=== PATIENT | male | born 2000 | race Caucasian/White ===

== ENCOUNTER 2023-09-01 12:50 | Outpatient (OUT) | payer MEDICAID, SELFPAY ==
[2023-09-01 13:26] LABS: Basophils Percent Auto 0.5 % (0.2-2.0); Eosinophils Absolute Auto 0.1 10^3/uL (0.0-0.7); Eosinophils Percent Auto 1.9 % (0.9-7.0); Hematocrit 43.9 % (42.0-54.0); Hemoglobin 15.3 g/dL (14.0-18.0); Immature Granulocytes Abs Auto 0.02 10^3/uL (0.00-0.03); Immature Granulocytes Pct Auto 0.3 % (0.0-0.5); Lymphocytes Absolute Auto 1.5 10^3/uL (1.2-3.8); Lymphocytes Percent Auto 25.1 % (20.5-60.0); Mean Corpuscular HGB Conc 34.9 g/dL (29.9-35.2); Mean Corpuscular Hemoglobin 31.9 pg (25.9-34.0); Mean Corpuscular Volume 91.6 fL (80.0-94.0); Mean Platelet Volume 9.1 fL (9.5-13.5); Monocytes Absolute Auto 0.4 10^3/uL (0.3-0.8); Monocytes Percent Auto 7.4 % (1.7-12.0); Neutrophils Absolute Auto 3.8 10^3/uL (1.4-6.5); Neutrophils Percent Auto 64.8 % (43.0-75.0); Platelet Count 240 10^3/uL (150-450); Red Blood Count 4.79 10^6/uL (4.70-6.10); Red Cell Distribution Width 11.8 % (11.0-15.0); White Blood Count 5.8 10^3/uL (4.0-11.0)
[2023-09-01 14:25] LABS: Alanine Aminotransferase 38 U/L (16-63); Albumin Globulin Ratio 1.1; Alkaline Phosphatase 52 U/L (46-116); Anion Gap 11.2; Aspartate Amino Transferase 16 U/L (15-37); BUN Creatinine Ratio 15.1; Calcium 8.9 mg/dL (8.5-10.1); Chloride 103 mmol/L (98-107); Chol HDL Ratio 2.7; Cholesterol 188 mg/dL (<=200); Estimated GFR (African America >60 (>=60); Estimated GFR (Non-African Ame >60 (>=60); Globulin 3.7 g/dL; Glucose 93 mg/dL (74-106); HDL Cholesterol 69 mg/dL (40-60); Potassium 4.2 mmol/L (3.5-5.1); Sodium 139 mmol/L (136-145); Total Protein 7.7 g/dL (6.4-8.2); Triglycerides 76 mg/dL (<=150); VLDL CHOLESTEROL 15.2 mg/dL
[2023-09-01 14:55] LABS: Bilirubin Urine NEGATIVE (NEGATIVE); Blood Urine NEGATIVE (NEGATIVE); Clarity Urine CLEAR (CLEAR); Color Urine LT. YELLOW (YELLOW); Glucose Urine UA NEGATIVE (NEGATIVE); Ketones Urine NEGATIVE (NEGATIVE); Leukocyte Esterase Urine NEGATIVE (NEGATIVE); Nitrite Urine NEGATIVE (NEGATIVE); Protein Urine NEGATIVE (NEG/TRACE); Urobilinogen Urine 0.2 EU/dL (0.2-1.0); pH Urine 7.5 (5.0-9.0)
[2023-09-01 14:56] LABS: Urine Microscopic Indicated NO
[2023-09-01 15:22] LABS: Erythrocyte Sedimentation Rate 4 mm/hr (<=15)
[2023-09-05 06:10] LABS: Free Testosterone(Direct) 7.5 pg/mL (9.3-26.5); Testosterone 363 ng/dL (264-916)
== END 2023-09-01 12:51 | disposition home or self-care (01) ==
PROVIDERS: PCP Nurse Practitioner; Visit Provider Nurse Practitioner
DX: R53.83 Other fatigue (principal); Z68.34 Body mass index [BMI] 34.0-34.9, adult; E66.9 Obesity, unspecified; L65.9 Nonscarring hair loss, unspecified
CPT/HCPCS: 36415; 80053; 80061; 81003; 82306; 82607; 82728; 82746; 83540; 84402; 84403; 84443; 85025; 85652

== ENCOUNTER 2023-09-07 19:22 | Emergency (ER) | payer MEDICAID, SELFPAY ==
[2023-09-07 19:32] VITALS: BP 135/80; PULSE 56; RESP 16; TEMP 36.4; O2SAT 100; BMI 34.3
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
--- NOTE | 2023-09-07 19:59 | ED_ITS ---
HPI - General Adult General Chief complaint: Headache Stated complaint: Migraine Time Seen by Provider: 09/07/23 19:57 Mode of arrival: walk-in History of Present Illness HPI narrative: presents complaining of headache that started about 2 hours ago. Pain behind his right eye. Similar to past headaches. tonight has vomited several times and still feels nauseated. No fever . No photophobia. No ext. paresthesia . States last time he had a headache like this was several years ago. Recurrent headaches on and off since he was a kid Onset (ago): hour(s) Related Data Home Medications Medication Instructions Recorded Confirmed famotidine 20 mg tablet mg 09/07/23 Allergies Allergy/AdvReac Type Severity Reaction Status Date / Time amoxicillin Allergy Verified 09/07/23 19:37 Penicillins Allergy Verified 09/07/23 19:37 Review of Systems ROS Status of ROS 10 or more systems reviewed and unremark able except as noted in history and below PFSH PFS Social History Smoking status: Never smoker Exam Constitutional Vital Signs, click to edit/add: Last Vital Signs Temp 97.5 F L 09/07/23 19:32 Pulse 56 L 09/07/23 19:32 Resp 16 09/07/23 19:32 BP 135/80 09/07/23 19:32 Pulse Ox 100 09/07/23 19:32 O2 Del Method Room Air 09/07/23 19:32 Common normals: no apparent distress, average body habitus, oriented x3, no limitations, healthy appearing, alert and well nourished [facility] Common normals: normocephalic Eye Common normals: PERRL, EOMs intact bilaterally and conjunctivae normal Respiratory Common normals: normal respiratory effort, no retractions and no use of accessory muscles Cardio Common normals: regular rate, regular rhythm, S1 normal heart sound and S2 normal heart sound GI Common normals: Normal to inspection, nondistended, normoactive bowel sounds present, soft to palpation and non-tender Extremity Common normals: normal to inspection Neuro Common normals: oriented x3, CN's II-XII intact bilaterally, moves all extremities, no focal motor deficits and no sensory deficits noted Psych Appearance: grossly normal Course Vital Signs Vital signs: Vital Signs Temperature 97.5 F L 09/07/23 19:32 Pulse Rate 56 L 09/07/23 19:32 Respiratory Rate 16 09/07/23 19:32 Blood Pressure 135/80 09/07/23 19:32 Pulse Oximetry 100 09/07/23 19:32 Oxygen Delivery Method Room Air 09/07/23 19:32 Temperature 97.5 F L 09/07/23 19:32 Pulse Rate 56 L 09/07/23 19:32 Respiratory Rate 16 09/07/23 19:32 Blood Pressure 135/80 09/07/23 19:32 Pulse Oximetry 100 09/07/23 19:32 Oxygen Delivery Method Room Air 09/07/23 19:32 Medical Decision Making MDM Narrative Medical decision making narrative: patient presents with a headache. similar to past headaches. Treated succ essfully in the department. He is now resting and pain free. Discharged home and advised to follow up with the family doctor Lab Data Labs: Lab Results 09/07/23 Range/Units 20:16 WBC 9.4 (4.0-11.0) 10^3/uL RBC 4.75 (4.70-6.10) 10^6/uL Hgb 15.2 (14.0-18.0) g/dL Hct 43.0 (42.0-54.0) % MCV 90.5 (80.0-94.0) fL MCH 32.0 (25.9-34.0) pg MCHC 35.3 H (29.9-35.2) g/dL RDW 11.6 (11.0-15.0) % Plt Count 250 (150-450) 10^3/uL MPV 9.2 L (9.5-13.5) fL Neut % (Auto) 78.2 H (43.0-75.0) % Lymph % (Auto) 15.6 L (20.5-60.0) % [place] % (Auto) 5.0 (1.7-12.0) % Eos % (Auto) 0.7 L (0.9-7.0) % Baso % (Auto) 0.3 (0.2-2.0) % Neut # (Auto) 7.4 H (1.4-6.5) 10^3/uL Lymph # (Auto) 1.5 (1.2-3.8) 10^3/uL [place] # (Auto) 0.5 (0.3-0.8) 10^3/uL Eos # (Auto) 0.1 (0.0-0.7) 10^3/uL Baso # (Auto) 0.0 (0.0-0.1) 10^3/uL Abs Immat Gran (auto) 0.02 (0.00-0.03) 10^3/uL Imm/Tot Granulo (auto) 0.2 (0.0-0.5) % Sodium 138 (136-145) mmol/L Potassium 4.1 (3.5-5.1) mmol/L Chloride 103 (98-107) mmol/L Carbon Dioxide 30.5 (21.0-32.0) mmol/L Anion Gap 8.6 BUN 15.0 (7.0-18.0) mg/dL Creatinine 0.98 (0.70-1.30) mg/dL Est GFR ( Amer) >60 (>=60) Est GFR (Non-Af Amer) >60 (>=60) BUN/Creatinine Ratio 15.3 Glucose 93 (74-106) mg/dL Calcium 8.8 (8.5-10.1) mg/dL Discharge Plan Discharge Chief Complaint: Headache Clinical Impression: Migraine Patient Disposition: Home, Self-Care Prescriptions / Home Meds: No Action famotidine 20 mg tablet Instructions: Migraine Headache (ED) Additional Instructions: follow up with your family doctor for recheck Referrals: Adeline Santana NP [Primary Care Provider] - 1 week Stand Alone Forms: Portal Instructions
[2023-09-07] MEDS: KETOROLAC TROMETHAMINE 30 MG/ML VIAL IM (20:17)
[2023-09-07] MEDS: METOCLOPRAMIDE HCL 10 MG/2 ML VIAL IVP (20:18)
[2023-09-07] MEDS: DIPHENHYDRAMINE HCL 50 MG/ML (1ML) VIAL IV (20:19)
[2023-09-07 20:22] LABS: Basophils Percent Auto 0.3 % (0.2-2.0); Eosinophils Absolute Auto 0.1 10^3/uL (0.0-0.7); Eosinophils Percent Auto 0.7 % (0.9-7.0); Hemoglobin 15.2 g/dL (14.0-18.0); Immature Granulocytes Abs Auto 0.02 10^3/uL (0.00-0.03); Immature Granulocytes Pct Auto 0.2 % (0.0-0.5); Lymphocytes Absolute Auto 1.5 10^3/uL (1.2-3.8); Lymphocytes Percent Auto 15.6 % (20.5-60.0); Mean Corpuscular HGB Conc 35.3 g/dL (29.9-35.2); Mean Corpuscular Volume 90.5 fL (80.0-94.0); Mean Platelet Volume 9.2 fL (9.5-13.5); Monocytes Absolute Auto 0.5 10^3/uL (0.3-0.8); Neutrophils Absolute Auto 7.4 10^3/uL (1.4-6.5); Neutrophils Percent Auto 78.2 % (43.0-75.0); Platelet Count 250 10^3/uL (150-450); Red Blood Count 4.75 10^6/uL (4.70-6.10); Red Cell Distribution Width 11.6 % (11.0-15.0); White Blood Count 9.4 10^3/uL (4.0-11.0)
[2023-09-07 20:31] LABS: Anion Gap 8.6; BUN Creatinine Ratio 15.3; Calcium 8.8 mg/dL (8.5-10.1); Carbon Dioxide 30.5 mmol/L (21.0-32.0); Chloride 103 mmol/L (98-107); Estimated GFR (African America >60 (>=60); Estimated GFR (Non-African Ame >60 (>=60); Glucose 93 mg/dL (74-106); Potassium 4.1 mmol/L (3.5-5.1); Sodium 138 mmol/L (136-145)
--- NOTE | 2023-09-07 22:09 | ED_ITS ---
HPI - General Adult General Chief complaint: Headache Stated complaint: Migraine Time Seen by Provider: 09/07/23 19:57 Mode of arrival: walk-in Related Data Home Medications Medication Instructions Recorded Confirmed famotidine 20 mg tablet mg 09/07/23 Allergies Allergy/AdvReac Type Severity Reaction Status Date / Time amoxicillin Allergy Verified 09/07/23 19:37 Penicillins Allergy Verified 09/07/23 19:37 PFSH PFSH Social History Smoking status: Never smoker Exam Constitutional Vital Signs, click to edit/add: Last Vital Signs Temp 97.5 F L 09/07/23 19:32 Pulse 56 L 09/07/23 19:32 Resp 16 09/07/23 19:32 BP 135/80 09/07/23 19:32 Pulse Ox 100 09/07/23 19:32 O2 Del Method Room Air 09/07/23 19:32 Course Vital Signs Vital signs: Vital Signs Temperature 97.5 F L 09/07/23 19:32 Pulse Rate 56 L 09/07/23 19:32 Respiratory Rate 16 09/07/23 19:32 Blood Pressure 135/80 09/07/23 19:32 Pulse Oximetry 100 09/07/23 19:32 Oxygen Delivery Method Room Air 09/07/23 19:32 Temperature 97.5 F L 09/07/23 19:32 Pulse Rate 56 L 09/07/23 19:32 Respiratory Rate 16 09/07/23 19:32 Blood Pressure 135/80 09/07/23 19:32 Pulse Oximetry 100 09/07/23 19:32 Oxygen Delivery Method Room Air 09/07/23 19:32 Medical Decision Making Lab Data Labs: Lab Results 09/07/23 Range/Units 20:16 WBC 9.4 (4.0-11.0) 10^3/uL RBC 4.75 (4.70-6.10) 10^6/uL Hgb 15.2 (14.0-18.0) g/dL Hct 43.0 (42.0-54.0) % MCV 90.5 (80.0-94.0) fL MCH 32.0 (25.9-34.0) pg MCHC 35.3 H (29.9-35.2) g/dL RDW 11.6 (11.0-15.0) % Plt Count 250 (150-450) 10^3/uL MPV 9.2 L (9.5-13.5) fL Neut % (Auto) 78.2 H (43.0-75.0) % Lymph % (Auto) 15.6 L (20.5-60.0) % [place] % (Auto) 5.0 (1.7-12.0) % Eos % (Auto) 0.7 L (0.9-7.0) % Baso % (Auto) 0.3 (0.2-2.0) % Neut # (Auto) 7.4 H (1.4-6.5) 10^3/uL Lymph # (Auto) 1.5 (1.2-3.8) 10^3/uL [place] # (Auto) 0.5 (0.3-0.8) 10^3/uL Eos # (Auto) 0.1 (0.0-0.7) 10^3/uL Baso # (Auto) 0.0 (0.0-0.1) 10^3/uL Abs Immat Gran (auto) 0.02 (0.00-0.03) 10^3/uL Imm/Tot Granulo (auto) 0.2 (0.0-0.5) % Sodium 138 (136-145) mmol/L Potassium 4.1 (3.5-5.1) mmol/L Chloride 103 (98-107) mmol/L Carbon Dioxide 30.5 (21.0-32.0) mmol/L Anion Gap 8.6 BUN 15.0 (7.0-18.0) mg/dL Creatinine 0.98 (0.70-1.30) mg/dL Est GFR ( Amer) >60 (>=60) Est GFR (Non-Af Amer) >60 (>=60) BUN/Creatinine Ratio 15.3 Glucose 93 (74-106) mg/dL Calcium 8.8 (8.5-10.1) mg/dL Discharge Plan Discharge Chief Complaint: Headache Clinical Impression: Migraine Patient Disposition: Home, Self-Care Prescriptions / Home Meds: No Action famotidine 20 mg tablet Instructions: Migraine Headache (ED) Additional Instructions: follow up with your family doctor for recheck Referrals: Adeline Santana NP [Primary Care Provider] - 1 week Discharge Date/Time: 03/06/24 22:20 Stand Alone Forms: Portal Instructions
== END 2023-09-07 22:20 | disposition home or self-care (01) ==
PROVIDERS: Emergency Provider Internal Medicine; PCP Nurse Practitioner
DX: G43.909 Migraine, unspecified, not intractable, without status migrainosus (principal)
CPT/HCPCS: 36415; 80048; 85025; 96372; 96374; 96375; 99284